=== PATIENT | male | born 1955 | race Caucasian/White ===

== ENCOUNTER → 2021-11-30 10:16 | Outpatient (CLI) | payer MEDICARE, BC, SELFPAY ==
[2021-11-30 12:29] LABS: COVID19 -Nasal RAPID Negative (Negative)
== END ==
PROVIDERS: PCP Family Medicine; Referring Provider Orthopaedic Surgery; Visit Provider Orthopaedic Surgery
DX: Z20.822 Contact with and (suspected) exposure to COVID-19 (principal)
CPT/HCPCS: 87635; C9803

== ENCOUNTER 2021-12-02 09:08 | Day surgery (SDC) | payer MEDICARE, BC, SELFPAY ==
[2021-11-24 13:49] VITALS: BMI 33.8
[2021-12-02] VITALS (14 sets, daily range): BP systolic 105–161; BP diastolic 57–90; PULSE 60–81; RESP 14–16; TEMP 35.9–37.1; O2SAT 95–100; BMI 33.7
[2021-12-02] MEDS: LACTATED RINGERS 1,000 ML 42 ML IV ×2 (09:40→13:00)
--- NOTE | 2021-12-02 10:54 | DI.RAD.S_ITS ---
PROCEDURE: XR HIP W PEL IF DONE LT 2V INDICATIONS: hip replacement TECHNIQUE: 2 view(s) of the hip acquired. COMPARISON: [facility], CR, XR PELVIS 1-2V, 12/02/2021, 13:17. [facility], CR, XR PELVIS WITH LATERAL HIP LEFT, 09/02/2021, 9:37. FINDINGS: Bones: Patient is status post left hip arthroplasty, with hardware components in expected positions. The hip joint appears congruent. The visualized bony structures appear intact. Soft tissues: Overlying postoperative changes are noted. No suspicious soft tissue densities. IMPRESSION: Expected immediate postoperative appearance of left hip arthroplasty. Dictated by: Charly UNDERWOOD Interpreted: Natasha Helton MD on 12/02/2021 at 15:40 Transcribed by: NIKIA on 12/02/2021 at 15:40 Approved by: Natasha Helton M.D. on 12/02/2021 at 17:40
[2021-12-02] MEDS: CELECOXIB 200 MG CAPSULE PO (11:05)
[2021-12-02] MEDS: VANCOMYCIN 1,000 MG/200 ML PIGGYBACK 200 MG IV ×2 (11:05→12:20)
[2021-12-02] MEDS: ACETAMINOPHEN 325 MG TABLET 975 MG PO (11:06)
--- NOTE | 2021-12-02 11:35 | PM.PREOP ---
Pre-operative Note COVID-19 COVID-19 status: Negative Interval Note History & Physical reviewed/Exam performed by Physician: Yes Changes to H&P: No
--- NOTE | 2021-12-02 11:36 | P.OP_ITS ---
Operative Date/Time/Diagnoses Date of procedure: 12/02/21 Time of procedure: 11:55 Pre-op diagnosis: left hip OA Post-op diagnosis: same Procedure & Clinicians Procedure: Left total hip arthroplasty posterior approach Same procedure as scheduled: Yes Indications: The patient has had progressively worsening left hip pain with radiographic alberto nges consistent with arthritis. Non-operative management has failed and the patient has requested total hip replacement. The risks, benefits and alternatives to surgery were discussed with the patient prior to proceeding. Risks discussed included, but were not limited to, failure to relieve pain, leg length discrepancy, dislocation, stiffness, infection, nerve damage, deep venous thrombosis, pulmonary embolism, stroke, coma, heart attack, permanent paralysis and , as well as the potential need for eventual revision of the prosthetic. Surgeon: Edwige Kennedy Insulation Power Unit Tender: Massiel Aguirre Anesthesia Type: General and Spinal Operative Notes Findings: Severe left hip osteoarthritis, good stability Closure Type: primary Specimen(s): none sent Prosthetic devices, grafts, tissues, transplants, or devices: Kennedy and nephew size 62 R3, neutral poly liner, size 10 standard offset anthology, -4 by 40 Oxinium femoral head,one 6.5 cm screw Applied: drain(s) Estimated Blood Loss (mL): 250 Blood products transfused: none Procedure in detail: The patient was seen in the pre-operative area, where the patient identified the left hip as the operative site and this was marked with my initials. The patient received pre-operative antibiotics and was taken to the operating room and placed on the operative table in the right lateral decubitus position after satisfactory anesthesia. A multimedia instructional designer out was performed. The left leg was prepar ed from the ankle to the iliac crest with ChloroPrep in the usual fashion and draped through sterile drapes. The hip was approached through an approximately 20 cm incision centered over the greater trochanter and curving gently posteriorly as it went proximally. This was carried sharply to the fascia yana, which was divided and retracted with a self retaining retractor. The trochanteric bursa was excised with care being taken to avoid the sciatic nerve, which was identified and protected throughout the case. The short external rotators were incised and the capsulomuscular flap was raised and tagged for later repair. The hip was dislocated, and a femoral neck osteotomy performed approximately 15 mm above the lesser trochanter. Retractors were placed around the femur. The canal was opened with a box cutting osteotome, followed by a T handled reamer and a lateralizing reamer. The chili pepper broach was then used, followed by sequential broaching until there was good stability of the broach in the femur. Retractors were placed to expose the acetabulum. The labrum and central soft tissues were removed. Reaming was performed initially going up in 2 mm increments, then 1 mm increments until good bite was obtained with an odd sized reamer. The cup 1 mm larger than the last reamer was then inserted using the appropriate anteversion guides. A trial neutral liner was placed. The broach was placed in the canal. A trial head and neck were then placed and the hip relocated and checked for leg length and stability. An intraoperative film confirmed the component position and no evidence of fracture. The patient was stable in the position of sleep, of squatting, and could be put through a range of motion with 45 degrees internal rotation without dislocation. At 90 degrees flexion, internal rotation to 70? was possible before dislocation. This was felt to be satisfactory and the appropriate components were opened, and the trials were removed. The acetabulum was further stabilized with a single screw. It was tested and noted to be stable. The acetabular liner was impacted into position. The final stem was then impacted into the prepared femoral canal. A brief Betadine soak was performed while trialing with head options. The hip was meticulously irrigated with normal saline. Finally the femoral head was impacted onto the stem. The acetabulum was cleared of all material and the hip relocated one final time. The capsulomuscular flap was then repaired to the greater trochanter though an awl hole using the tag sutures. The short external rotators were repaired with a nonabsorbable suture. A deep drain was placed and brought out anteriorly. The fascia yana was closed with Vicryl. The subcutaneous layer was closed with barbed sutures and SteriStrips. An Aquacel Ag dressing was applied and the patient was taken to recovery having tolerated the procedure well. Complications: none Post-operative Condition: stable Disposition: Acute Care Plan for aftercare: The patient will be maintained on a standard total hip replacement protocol with weight bearing as tolerated and posterior hip precautions. The patient will receive Aspirin and sequential compression devices for DVT prophylaxis. The patient will be discharged home when safe for the home environment.
[2021-12-02] MEDS: TRANEXAMIC ACID 1,000 MG VIAL 2000 MG INJ (12:20)
[2021-12-02] MEDS: CEFAZOLIN 2 GM/100 ML PREMIX 100 ML IV ×2 (12:20→19:25)
--- NOTE | 2021-12-02 12:30 | DI.RAD.S_ITS ---
PROCEDURE: XR PELVIS 1-2V INDICATIONS: INNER OP left posterior TECHNIQUE: Intra-operative view of the pelvis and hip acquired. COMPARISON: [facility], CR, XR PELVIS WITH LATERAL HIP LEFT, 09/02/2021, 9:37. [facility], CR, XR HIP W PEL IF DONE LT 2V, 12/02/2021, 14:34. FINDINGS: Bones: Intraoperative devices prior to placement of arthroplasty prostheses are in expected positions. No fractures or suspicious bony lesions. Soft tissues: Overlying surgical retractors are present, along with other intraoperative changes. IMPRESSION: Intraoperative imaging during placement of left hip arthroplasty demonstrates arthroplasty prostheses in expected position. Dictated by: Charly Chase [facility] Interpreted: Natasha Helton MD on 12/02/2021 at 15:39 Transcribed by: NIKIA on 12/02/2021 at 15:39 Approved by: Natasha Helton M.D. on 12/02/2021 at 17:40
[2021-12-02] MEDS: BUPIVACAINE 0.25% W/ EPI 30 ML VIAL 60 ML INJ (12:44)
--- NOTE | 2021-12-02 12:48 | SUR.OPER ---
Lateral on padded OR bed. Gel axillary roll. Arms secured on padded armboard with pillow supporting top arm. Padded hip positioner braces x4 - anterior and posterior chest and pelvis. Additional gel pad used anterior pelvis. Gel pad under bottom leg from knee to foot and secured with tape over sheet.
[2021-12-02] MEDS: BUPIVACAINE LIPOSOME 266 MG/20 ML VIAL INJ (14:04)
[2021-12-02] MEDS: OXYCODONE IR 10 MG TABLET PO (15:42)
[2021-12-02] MEDS: LACTATED RINGERS 1,000 ML 125 ML IV (15:45)
[2021-12-02] MEDS: ACETAMINOPHEN 325 MG TABLET 650 MG PO ×2 (17:52→23:39)
[2021-12-02] MEDS: IBUPROFEN 400 MG TABLET PO ×2 (17:53→23:40)
--- NOTE | 2021-12-02 18:58 | PC.NURSE ---
Pt arrived from PACU at 1500, VSS, afebrile on RA. He denies numbness or tingling to Lower extremities. LR at 125ml/hr. He tolerates dinner well, no n/v. He is able to void this evening. He reports pain well controlled to 2/10 with prn and scheduled pain medications. Dressing to L hip C/D/I.
[2021-12-02] MEDS: ASPIRIN EC 81 MG TABLET PO (20:45)
[2021-12-02] MEDS: DOCUSATE 100 MG CAPSULE PO (20:45)
--- NOTE | 2021-12-02 22:45 | PC.NURSE ---
Dr. Kennedy was here to see patient.
[2021-12-03] MEDS: LACTATED RINGERS 1,000 ML 125 ML IV (01:12)
[2021-12-03] MEDS: CEFAZOLIN 2 GM/100 ML PREMIX 100 ML IV (03:27)
[2021-12-03 04:38] LABS: Hematocrit 35.6 % (41-53); Hemoglobin 12.4 g/dL (13.5-17.5)
[2021-12-03 06:00] VITALS: BP 102/69; PULSE 64; RESP 14; TEMP 36.6; O2SAT 98
[2021-12-03] MEDS: IBUPROFEN 400 MG TABLET PO ×2 (06:10→11:43)
[2021-12-03] MEDS: ACETAMINOPHEN 325 MG TABLET 650 MG PO ×2 (06:11→11:42)
[2021-12-03 08:20] VITALS: BP 113/58; PULSE 72; RESP 16; TEMP 36.5; O2SAT 96
[2021-12-03] MEDS: ASPIRIN EC 81 MG TABLET PO (08:37)
[2021-12-03] MEDS: DOCUSATE 100 MG CAPSULE PO (08:38)
[2021-12-03] MEDS: SODIUM CHLORIDE 0.9% FLUSH 10 ML IV (08:40)
--- NOTE | 2021-12-03 09:10 | PT.IIE ---
Addendum entered and electronically signed by Jody Gil PT 12/03/21 15:25: This is to certify that I have reviewed and in direct supervision of this pt's care. 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 Mobility and Gait pt stated that he is independent with all mobility and ambulation without use of AD. Social History Household Members spouse Living Arrangements House Number of Floors (Floors) One Floor Number of Stairs To Enter/Railing? 2 steps R rail to enter backdoor of house. 30ft from driveway to backdoor. Home Environment Standard Height Toilet,Walk in Shower Home Equipment Front Wheel Walker,Straight Cane,Raised Toilet Seat Without Armrests,Hand Held Shower,Grab Bars Near Toilet, Grab Bars In Shower Additional Social History Comment pt states he has an adjustable bed. M2 PT-IP Current Condition Start: 12/03/21 12:32 Freq: NEEDED Status: Active Protocol: Document 12/03/21 09:10 (Rec: 12/03/21 15:18 [id number]) Physical Therapy Current Condition Current Condition Evaluation Date 12/03/21 Treatment Diagnosis s/p L FIDENCIO posterior approach; difficulty walking Onset Date 12/02/2021 M3 PT-IP Subjective Start: 12/03/21 12:32 Freq: NEEDED Status: Active Protocol: Document 12/03/21 09:10 (Rec: 12/03/21 15:18 [id number]) Subjective Physical Therapy Visit Type Type Initial Evaluation Visit Start Time 09:10 Visit Stop Time 09:58 Total Visit Minutes 48 Number of SIZE WORKER Visits 0 Physical Therapy Visit Comments Patient Comments pt agreeable to do PT. M4 PT-IP Mobility and Gait Start: 12/03/21 12:32 Freq: NEEDED Status: Active Protocol: Document 12/03/21 09:10 (Rec: 12/03/21 15:18 [id number]) PT-Bed Mobility Assessment Supine to Sit Supine to Sit Standby Assistance PT-Transfer Assessment Sit to and From Stand Sit to and from Stand Standby Assistance,Contact Guard Assistance,1 Person Assistance,Use of Upper Extremities Equipment Transfer Assistive Device Gait Belt,Front Wheeled Walker Orthotic/Prosthetic Devices or Brace: No Transfers Transfer Destination Chair Transfer Technique ambulation Transfer Ability Level of Assist Standby Assistance,Contact Guard Assistance,1 Person Assistance Comments Mobility Comments pt BP in supine 130/65. educated pt regarding hip precautions, pt understood. completed supine to sit on EOB SBA, no cues. pt able to sit on EOB SBA. pt does not c/o dizziness or lightheadedness. pt completed sit to stand CGA, min cues with FWW. Reminded pt of hip precautions and transfer technique. pt repeat sit to stand CGA, no cues. pt ambulated ~10ft CGA min cues with FWW to chair and completed stand to sit. BP in sittin/78. pt agreed to ambulate more. educated pt on stair climbing technique. completed sit to stand SBA, no cues with FWW and ambulated ~ 150 ft CGA to SBA, min cues towards stairs. pt ascended and descended 3 steps R rail with one hand CGA, min cues. Repeated stairs with CGA no cues. pt ambulated ~250 ft back to room SBA, no cues with FWW and requested to sit in chair. positioned pt on chair, call light and table placed within reach. Pt expressed no further concerns. Pt stated that he will instruct and caregiver training is unecessary. Gait Assessment Gait Gait Assistance Required: Standby Assistance,Contact Guard Assist,1 Person Assist Distance (Feet) 250 Able to Maintain Weight Bearing Status Yes During Gait Assistive Devices Assistive Device Gait Belt,Front Wheeled Walker Orthotic/Prosthetic Devices or Brace: No Gait Deviations General Gait Pattern Antalgic,Decreased Stride Length,Decreased Feet Clearance,Narrow Based Gait Factors Limiting Gait Function Factors Limiting Gait Function Decreased Activity Tolerance, Decreased Sensation,Decreased Strength,Incoordination,Pain, Poor Balance,Poor Safety Awareness Stair Climbing Assessment Evaluation Level of Assist On Stairs Contact Guard Assistance,1 Person Assistance Devices Stair Climbing Assistive Devices Right Railing Technique/Endurance Stair Climbing Direction Ascend and Descend Stair Climbing Technique Step to Step Number of Steps Climbed 3 Query Text: Stair Climbing Set # Repetitions (reps) 2 Comments Stair Climbing Comments see mobility comments PT-Balance Assessment Sitting Balance and Reactions Static Sitting Balance Ability Good Dynamic Sitting Balance Ability Good Standing Balance and Reactions Static Standing Balance Ability Fair Dynamic Standing Balance Ability Fair Device Used FWW M5 PT-IP Objective Assessments Start: 12/03/21 12:32 Freq: NEEDED Status: Active Protocol: Document 12/03/21 09:10 (Rec: 12/03/21 15:18 [id number]) Orientation Orientation/Cognition Level of Alertness Alert Orientation Name,Place,Situation Language Function Ability No Deficits Noted Safety Awareness Decreased Safety Awareness Memory Description No Deficits Noted Gross Range of Motion Lower Extremity ROM Assessment Within Functional Limits Strength Lower Extremity Strength Assessment Left Impaired Hip 4-/5 Knee 4-/5 Ankle 4/5 Coordination Assessment Gross Coordination Gross Coordination WNL Muscle Tone Muscle Tone WNL Yes M6 PT-IP Treatment Start: 12/03/21 12:32 Freq: NEEDED Status: Active Protocol: Document 12/03/21 09:10 (Rec: 12/03/21 15:18 [id number]) Physical Therapy Treatment Education Education Provided Precautions,Weight Bearing Status,Post-Op Packet,Safety M7 PT-IP Assessment and Plan Start: 12/03/21 12:32 Freq: NEEDED Status: Active Protocol: Document 12/03/21 09:10 (Rec: 12/03/21 15:18 [id number]) PT Summary Assessment and Plan Potential Rehabilitation Potential Good Status of Condition at Evaluation Stable Summary Impairments Pain,Strength,Balance, Coordination,Bed Mobility, Transfers,Gait,Activity Tolerance Progress Towards Goals Slow Progress due to Pain,Slow Progress due to Activity Tolerance Assessment Summary pt is s/p L FIDENCIO posterior approach. pt requiring SBA to CGA for mobility and ambulation using FWW. reccomending home with assistance, pt reports is able to provide assistance when needed at home. Pt states he has OP PT scheduled. Goals Bed Mobility Goal Independent Transfer Goal Independent,Front Wheeled Walker Gait Goal Independent,Front Wheel Walker Gait Distance 300 Other Goals pt will be able to ascend and descent 2 steps R rail with one hand independently. Days to Meet Goals 5 Frequency of Treatment Frequency Of Treatment Twice a Day Treatment Plan Physical Therapy Treatment Plan Bed Mobility Training,Transfer Training,Gait Training, Therapeutic Exercise,Balance Retraining,Post Op Education, Discharge Planning,Hot or Cold Pack,Neuromuscular Re-ed, Coordination Retraining,Manual Therapy Precautions Posterior Hip Precautions No Hip Flexion > 90 degrees,No Hip Internal Rotation,No Hip Adduction Weight Bearing Status Weight Bearing Status Weight Bear as Tolerated Allowed Weight Bearing Amount (enter % WBAT on LLE. or #) (%) Recommendations To Nursing Amount of Assist Needed 1 Person Assist Discharge Recommendations PT Discharge Recommendations Home with Assistance, Outpatient PT Transportation Needs at Discharge Private Vehicle
--- NOTE | 2021-12-03 11:47 | PC.NURSE ---
Pt is A&OX3, he is voiding without difficulty and he reports pain level tolerable 1-07/25 this a.m. He declines wanting any PRN narcotics prior to working with PT. He reports pain to L hip is well controlled with scheduled ibuprofen and tylenol. Ortho team at bedside this a.m. clearing patient for discharge pending PT this a.m. Patient cleared for discharge by PT this a.m. after breakfast. His arrives to escort him home. Aquacel c/d/i. Both patient and verbalize understanding of site care,s/sx of infection/worsening symptoms when to call provider, medications, activity and follow up care. He is escorted by w/ch to private vehicle with for discharge home at 1145 a.m.
--- NOTE | 2021-12-03 12:30 | P.DS_ITS ---
History of Present Illness History of Present Illness Date Patient Seen: 12/03/21 Time Patient Seen: 07:00 Chief complaint: Left total Hip *OPB* Narrative: Operative Date/Time/Diagnoses Date of procedure: 12/02/21 Time of procedure: 11:55 Pre-op diagnosis: left hip OA Post-op diagnosis: same Procedure & Clinicians Procedure: Left total hip arthroplasty posterior approach Same procedure as scheduled: Yes Indications: The patient has had progressively worsening left hip pain with radiographic changes consistent with arthritis. Non-operative management has failed and the patient has requested total hip replacement. The risks, benefits and alternatives to surgery were discussed with the patient prior to proceeding. Risks discussed included, but were not limited to, failure to relieve pain, leg length discrepancy, dislocation, stiffness, infection, nerve damage, deep venous thrombosis, pulmonary embolism, stroke, coma, heart attack, permanent paralysis and , as well as the potential need for eventual revision of the prosthetic. Surgeon: Edwige Kennedy Professor Of Kinesiology: Massiel Aguirre Anesthesia Type: General and Spinal Operative Notes Findings: Severe left hip osteoarthritis, good stability Closure Type: primary Specimen(s): none sent Prosthetic devices, grafts, tissues, transplants, or devices: Kennedy and nephew size 62 R3, neutral poly liner, size 10 standard offset anthology, -4 by 40 Oxinium femoral head,one 6.5 cm screw Applied: drain(s) Estimated Blood Loss (mL): 250 Blood products transfused: none Discharge Providers Provider Discharge Date: 12/03/21 Primary care physician: Edilma Dietz MD Consults: 12/02/21 10:52 Consult to Anesthesiology Routine Comment: Consulting Provider: Anesthesiologist Reason for consultation: Regional block for post operative pain control 12/02/21 15:04 Consult to Discharge Planning Routine Comment: Consult to Physical Therapy Evaluate & Treat Comment: Physician Instructions: post op FIDENCIO protocol Consult to Respiratory Therapy Evaluate & Treat Comment: Physician Instructions: Evaluate and treat Discharge provider: Cyn Sepulveda PA-C Summary Hospital Course Discharge Diagnosis: s/p LEFT total hip arthroplasty Hospital Course: Mr Blum's hospital course was unremarkable. On POD# 1 he was feeling well and wanted to go home. He was eating and voiding without difficulty. He was evaluated prior to discharge. He denied the need for prescription pain medication and stated he had Tylenol, IBPN, and ASA at home; he was willing to accept a small amount of narcotic pain medication for home in case he had severe pain. Exam Vital Signs (past 8 hours): - 12/03/21 06:00 12/03/21 08:20 Temperature 97.8 F 97.7 F Pulse Rate 64 72 Respiratory Rate 14 16 Blood Pressure 102/69 113/58 L Pulse Oximetry 98 96 Oxygen Flow Rate 0 0 Oxygen Delivery Method Room Air Oxygen Flow Rate 0 Narrative Exam Narrative: 5/5 strength in quadriceps, hamstrings, DF, PF, EHL on left; 4/5 hip flexors. Sensation to light touch intact in BLE. Calves soft, compressible, nontender and without palpable cords or masses. Aquacel dressing with minimal bloody drainage, otherwise intact. 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 Multimodal pain control, outpt PT, ASA 81 mg BID x 6 weeks for VTE prophylaxis. Discharge Plan Discharge Plan Patient Disposition: Home Discharge orders & Medications Discharge Orders: Discharge (Order); Ordered 12/03/21 Ordered By: Cyn Sepulveda Prescriptions: New acetaminophen 325 mg Tablet 650 mg PO Q6HR Qty: 1 0RF aspirin 81 mg Tablet,Delayed Release (Dr/Ec) 81 mg PO BID Qty: 1 0RF ibuprofen 400 mg Tablet 400 mg PO Q6HR Qty: 1 0RF oxycodone 5 mg Tablet 5 mg PO Q4-6H PRN (Reason: pain, severe) Qty: 15 0RF Discontinued aspirin [Aspirin Low-Strength] 81 mg Tablet,Delayed Release (Dr/Ec) 81 mg PO DAILY Follow up/Referrals: Edilma Dietz MD [Primary Care Provider] - Edwige Kennedy MD [Physician] - As previously scheduled (Follow up with Cyn Sepulveda PA-C, on 12/14/2021 @ 11:00 am at [facility] office in [place].) Diet/Activity/Treatments Diet: Diet as Tolerated Activity: Weightbearing as tolerated to left leg. Posterior hip precautions. Skin/Wound/Dressing Care Report to your healthcare provider any signs of infection, such as:: chills, fever, night sweats, unusual drainage and unusual redness Dressing: May shower. Leave Aquacel dressing in place until follow up appointment. No bathing or otherwise soaking incision. Visit Report/Discharge Packet Instructions: DI for Hip Replacement Stand Alone Forms: Surgery Discharge Discharge Data Primary Care Provider: Edilma Dietz Attending Provider: Edwige Kennedy
--- NOTE | 2021-12-03 15:44 | CM.IDA ---
Initial DCP Assessment Note Pt is a 66 yo male, resident of [place], now POD#1 from left hip surgery by Dr Kennedy PCP: Edilma Dietz Payer: [facility]/[employer] out of state [facility] Reviewed chart, pt discussed in multidisciplinary rounds this morning. Therapy has cleared pt for return home w/family to assist and pt has planned for home, DC order from Ortho has already been initiated this morning. No barriers identified at this time to patient's safe discharge home w/family to assist; close outpatient f/u recommended. DOC Mojica
== END 2021-12-03 11:45 | disposition home or self-care (01) ==
LOC: OR 09:09 → AC 09:10
PROVIDERS: PCP Family Medicine; Referring Provider Orthopaedic Surgery; Visit Provider Orthopaedic Surgery
PROC: 0SRB0JZ Replacement of Left Hip Joint with Synthetic Substitute, Open Approach (ICD-10-PCS; CPT 27130; principal; 2021-12-02 11:15)
DX: M16.12 Unilateral primary osteoarthritis, left hip (principal)
CPT/HCPCS: 27130; 36415; 72170; 73502; 85014; 85018; 97161; 97530; C1776; C9290; J0690; J1100; J2250; J2405; J2704; J3010